=== PATIENT | male | born 1980 | race Caucasian/White ===

== ENCOUNTER 2022-01-30 03:50 | Emergency (ER) | payer SELFPAY ==
[~2022-01-30] VITALS: Ht 175.3 cm; Wt 90.7 kg
== END 2022-01-30 05:16 | disposition home or self-care (01) ==
LOC: ER 03:50
DX: S01.511A Laceration without foreign body of lip, initial encounter (principal); Y04.2XXA Assault by strike against or bumped into by another person, initial encounter
CPT/HCPCS: 99282

== ENCOUNTER 2022-04-19 17:59 | Emergency (ER) | payer SELFPAY ==
[~2022-04-19] VITALS: Ht 175.3 cm; Wt 81.7 kg
[2022-04-19] MEDS ORDERED: Triamcinolone A15 G3 TOP (19:40)
[2022-04-19] MEDS ORDERED: CEPH500 PO (19:40)
== END 2022-04-19 19:57 | disposition home or self-care (01) ==
LOC: ER 17:59
DX: L03.115 Cellulitis of right lower limb (principal); L23.7 Allergic contact dermatitis due to plants, except food; Z59.00 Homelessness unspecified
CPT/HCPCS: 99282; A9270